=== PATIENT | female | born 2000 | race Caucasian/White ===

== ENCOUNTER 2019-04-09 07:16 | Observation (INO) | payer SELFPAY ==
[2019-04-09 08:57] LABS: Alcohol, Urine < 3.0 mg/dL (0-5); Amphetamine Screen, Urine NEGATIVE (NEGATIVE); Barbiturate Scree,Urine NEGATIVE (NEGATIVE); Benzodiazephine Screen, Urine NEGATIVE (NEGATIVE); Cannabinoid Screen, Urine NEGATIVE (NEGATIVE); Cocaine Screen, Urine NEGATIVE (NEGATIVE); Opiate Scree,Urine NEGATIVE (NEGATIVE); Phencyclidine Screen, Urine NEGATIVE (NEGATIVE)
== END 2019-04-09 09:50 | disposition home or self-care (01) | DRG 833 ==
LOC: LDRP 07:16
PROVIDERS: ADMIT Specialist; ATTEND Specialist
DX: O26.893 Other specified pregnancy related conditions, third trimester (principal); M54.9 Dorsalgia, unspecified; Z3A.33 33 weeks gestation of pregnancy; Z87.891 Personal history of nicotine dependence
CPT/HCPCS: 59025; 76815; 80307; 81002; G0378

== ENCOUNTER 2019-05-05 23:26 | Observation (INO) | payer MEDICAID ==
[~2019-05-05] VITALS: Ht 170.2 cm; Wt 60.3 kg
[2019-05-06] MEDS ORDERED: LACTATED RINGER'S 1,000 ML IV ONE
[2019-05-06] MEDS ORDERED: PREN-129 OR (00:20)
[2019-05-06 01:11] LABS: Alcohol, Urine < 3.0 mg/dL (0-5); Amphetamine Screen, Urine NEGATIVE (NEGATIVE); Barbiturate Scree,Urine NEGATIVE (NEGATIVE); Benzodiazephine Screen, Urine NEGATIVE (NEGATIVE); Cannabinoid Screen, Urine NEGATIVE (NEGATIVE); Cocaine Screen, Urine NEGATIVE (NEGATIVE); Opiate Scree,Urine NEGATIVE (NEGATIVE); Phencyclidine Screen, Urine NEGATIVE (NEGATIVE)
[2019-05-06] MEDS ORDERED: ACETAMINOPHEN 325 MG TAB PO PRN (02:30)
== END 2019-05-06 09:50 | disposition home or self-care (01) | DRG 566 ==
LOC: LDRP 23:26
PROVIDERS: ADMIT Specialist; ATTEND Specialist
DX: O26.893 Other specified pregnancy related conditions, third trimester (principal); R10.9 Unspecified abdominal pain; Z87.891 Personal history of nicotine dependence; Z3A.36 36 weeks gestation of pregnancy
CPT/HCPCS: 59025; 76805; 76818; 80307; 81002; G0378; 96365; 96366

== ENCOUNTER → 2022-03-15 | Emergency (ER) | payer MEDICAID ==
[~2022-03-15] MED LIST: PREN-129 OR
== END | disposition left against medical advice (07) ==
LOC: EDUNIT# 03:12 → EDBD 03:12 → ER 03:19
DX: R10.9 Unspecified abdominal pain (principal); Z53.21 Procedure and treatment not carried out due to patient leaving prior to being seen by health care provider

== ENCOUNTER → 2022-07-25 | Emergency (ER) | payer MEDICAID | END | disposition left against medical advice (07) | LOC: ER 00:40 | DX: T14.8XXA Other injury of unspecified body region, initial encounter (principal); Z53.21 Procedure and treatment not carried out due to patient leaving prior to being seen by health care provider; X58.XXXA Exposure to other specified factors, initial encounter; Y93.89 Activity, other specified; Y92.89 Other specified places as the place of occurrence of the external cause; Y99.8 Other external cause status ==